=== PATIENT | male | born 1955 | race African-American/Black ===

== ENCOUNTER 2023-03-22 16:34 | Inpatient (IN) | payer MEDICARE ==
[2023-03-22 17:05] VITALS: BMI 30.2
[2023-03-22] MEDS ORDERED: Senokot S 8.6-50 MG TAB PO PRN (17:49)
[2023-03-22] MEDS ORDERED: Ondansetron ODT 4 MG TAB PO PRN (17:49)
[2023-03-22] MEDS ORDERED: HYDROcodone/Acetaminophen 7.5/325 mg Tablet PO PRN (17:49)
[2023-03-22] MEDS ORDERED: HYDROcodone/Acetaminophen 5/325 mg Tablet PO PRN (17:49)
[2023-03-22 19:47] LABS: #Basophils 0.1 10x3/uL (0.0-0.2); #Eosinphils 0.3 10x3/uL (0.0-0.5); #Monocytes 0.9 10x3/uL (0.0-1.1); #Neutrophils 3.8 10x3/uL (1.5-8.4); %Basophils 0.8 % (0.0-2.0); %Eosinophils 3.8 % (0.0-6.0); %Lymphocytes 22.7 % (18.0-47.0); %Monocytes 13.8 % (0.0-10.0); %Neutrophils 58.6 % (40.0-75.0); Hematocrit 23.3 % (38.8-50.0); Hemoglobin 7.4 g/dL (13.5-17.5); Mean Corpuscular HGB CONC 31.8 g/dL (32.0-36.0); Mean Corpuscular Hemoglobin 25.5 pg (27.0-33.0); Mean Corpuscular Volume 80.3 fl (81.2-95.1); Mean Platelet Volume 8.5 fl (7.4-10.4); Platelet Count 502 10x3/uL (150-450); RBC Distribution Width 19.3 % (11.5-14.5); White Blood Cell (WBC) Count 6.5 10x3/uL (3.5-10.5)
[2023-03-22 19:50] LABS: ALT (SGPT) 27 U/L (8-55); AST (SGOT) 14 U/L (5-34); Albumin 3.4 g/dL (3.4-4.8); Alkaline Phosphatase 58 U/L (40-110); Anion Gap 13 mmol/L (10-20); BUN (Urea Nitrogen) 13 mg/dL (8.4-25.7); Bilirubin, Total 0.2 mg/dL (0.2-1.2); Calc. Creatinine Clearance 85 mL/min (70-130); Calcium 8.6 mg/dL (7.8-10.44); Carbon Dioxide 20 mmol/L (23-31); Chloride 108 mmol/L (98-107); Estimated GFR 69; Globulin 2.6 g/dL (2.4-3.5); Glucose 91 mg/dL (80-115); Potassium 4.4 mmol/L (3.5-5.1); Sodium 137 mmol/L (136-145)
[2023-03-22] MEDS: Famotidine 20 MG TAB PO SCH (21:00)
[2023-03-22] MEDS: Carvedilol 6.25 MG TAB PO SCH (21:00)
[2023-03-22] MEDS: Magnesium Oxide 400 MG TAB PO SCH (21:00)
[2023-03-23 06:13] LABS: #Basophils 0.1 10x3/uL (0.0-0.2); #Eosinphils 0.2 10x3/uL (0.0-0.5); #Monocytes 0.9 10x3/uL (0.0-1.1); #Neutrophils 5.1 10x3/uL (1.5-8.4); %Basophils 0.8 % (0.0-2.0); %Eosinophils 2.6 % (0.0-6.0); %Lymphocytes 20.5 % (18.0-47.0); %Monocytes 11.3 % (0.0-10.0); %Neutrophils 64.4 % (40.0-75.0); Hematocrit 22.8 % (38.8-50.0); Hemoglobin 7.1 g/dL (13.5-17.5); Mean Corpuscular HGB CONC 31.1 g/dL (32.0-36.0); Mean Corpuscular Volume 80.3 fl (81.2-95.1); Mean Platelet Volume 8.5 fl (7.4-10.4); Platelet Count 493 10x3/uL (150-450); RBC Distribution Width 19.6 % (11.5-14.5); Red Blood Cell (RBC) Count 2.84 10x6/uL (4.32-5.72)
[2023-03-23 06:34] LABS: ALT (SGPT) 23 U/L (8-55); AST (SGOT) 14 U/L (5-34); Albumin 3.2 g/dL (3.4-4.8); Alkaline Phosphatase 54 U/L (40-110); Anion Gap 12 mmol/L (10-20); BUN (Urea Nitrogen) 14 mg/dL (8.4-25.7); Bilirubin, Total 0.2 mg/dL (0.2-1.2); Calc. Creatinine Clearance 80 mL/min (70-130); Calcium 8.6 mg/dL (7.8-10.44); Carbon Dioxide 23 mmol/L (23-31); Chloride 108 mmol/L (98-107); Estimated GFR 65; Globulin 2.3 g/dL (2.4-3.5); Glucose 96 mg/dL (80-115); Potassium 4.4 mmol/L (3.5-5.1); Protein, Total 5.5 g/dL (5.8-8.1); Sodium 139 mmol/L (136-145)
[2023-03-23] MEDS: Lisinopril 5 MG TAB PO SCH (08:55)
[2023-03-23] MEDS: Famotidine 20 MG TAB PO SCH ×2 (08:55→21:45)
[2023-03-23] MEDS: Carvedilol 6.25 MG TAB PO SCH ×2 (08:55→21:46)
[2023-03-23] MEDS: Magnesium Oxide 400 MG TAB PO SCH ×2 (08:55→21:45)
[2023-03-23] MEDS: CO Q-10 CAPSULE 50 MG PO SCH (08:56)
[2023-03-23] MEDS ORDERED: Clopidogrel Bisulfate 75 MG TAB PO SCH (09:00)
[2023-03-23] MEDS: Mometasone/Formoterol 200/5 60 PUFF INH SCH ×3 (09:10→20:41)
[2023-03-23 10:45] LABS: Prothrombin Time 10.5 sec (9.5-12.1)
[2023-03-23 10:46] LABS: Iron 18 ug/dL (65-175); Iron Binding Capacity, Total 356 mcg/dL (261-462)
[2023-03-23] MEDS ORDERED: Iron Sucrose Complex 200 MG in Sodium Chloride 0.9% 100 ML IVPB SCH (16:00)
[2023-03-23] MEDS ORDERED: Iron, Sodium Ferric Gluconate 250 MG in Sodium Chloride 0.9% 250 ML 250 ML IVPB SCH (16:30)
[2023-03-23] MEDS ORDERED: GoLYTELY 4,000 ml Bottle PO SCH (19:00)
[2023-03-23] MEDS: Ipratropium/Albuterol 3 ML NEB NEB PRN (20:40)
[2023-03-23] MEDS: Atorvastatin Calcium 40 MG TAB PO SCH (21:45)
[2023-03-24] MEDS ORDERED: Acetaminophen 325 MG TAB PO SCH (03:45)
[2023-03-24] MEDS ORDERED: Nitroglycerin 0.4 MG TAB (25 Tab Bottle) SL SCH ×2 (04:15→05:50)
[2023-03-24] MEDS ORDERED: Nitroglycerin 0.4 MG TAB (25 Tab Bottle) ONE (04:15)
[2023-03-24] MEDS ORDERED: Famotidine/PF 20 mg/2ml Vial SLOW IVP SCH (04:30)
[2023-03-24] MEDS ORDERED: Morphine 2 MG/ML VIAL SLOW IVP SCH (05:15)
[2023-03-24 05:53] LABS: #Basophils 0.1 10x3/uL (0.0-0.2); #Eosinphils 0.1 10x3/uL (0.0-0.5); #Monocytes 0.9 10x3/uL (0.0-1.1); #Neutrophils 18.9 10x3/uL (1.5-8.4); %Basophils 0.3 % (0.0-2.0); %Eosinophils 0.5 % (0.0-6.0); %Lymphocytes 3.9 % (18.0-47.0); %Monocytes 4.1 % (0.0-10.0); %Neutrophils 90.2 % (40.0-75.0); Anion Gap 14 mmol/L (10-20); BUN (Urea Nitrogen) 19 mg/dL (8.4-25.7); Calc. Creatinine Clearance 72 mL/min (70-130); Calcium 8.3 mg/dL (7.8-10.44); Carbon Dioxide 23 mmol/L (23-31); Chloride 105 mmol/L (98-107); Estimated GFR 57; Glucose 147 mg/dL (80-115); Hematocrit 20.4 % (38.8-50.0); Hemoglobin 6.5 g/dL (13.5-17.5); Mean Corpuscular HGB CONC 31.9 g/dL (32.0-36.0); Mean Corpuscular Hemoglobin 25.2 pg (27.0-33.0); Mean Corpuscular Volume 79.1 fl (81.2-95.1); Mean Platelet Volume 8.5 fl (7.4-10.4); Platelet Count 435 10x3/uL (150-450); Potassium 3.9 mmol/L (3.5-5.1); RBC Distribution Width 19.2 % (11.5-14.5); Red Blood Cell (RBC) Count 2.58 10x6/uL (4.32-5.72); Sodium 138 mmol/L (136-145)
[2023-03-24] MEDS ORDERED: Sodium Chloride 0.9% 500 ML IVPB SCH (06:00)
[2023-03-24] MEDS ORDERED: Heparin 5,000 UNITS/ML VIAL SLOW IVP SCH (06:00)
[2023-03-24] MEDS ORDERED: Nitroglycerin 50 MG/250 ML BOT 250 ML ONE ×2 (06:15→06:16)
[2023-03-24] MEDS ORDERED: Heparin 10,000 UNITS/ 10 ML VIAL ONE ×2 (06:16→07:47)
[2023-03-24] MEDS ORDERED: Verapamil 5 MG/2 ML VIAL ONE (06:16)
[2023-03-24] MEDS ORDERED: Lidocaine 1% (PF) 30 ML VIAL ONE (06:16)
[2023-03-24] MEDS ORDERED: Adenosine 6 MG/2 ML VIAL ONE (06:17)
[2023-03-24] MEDS ORDERED: Sodium Chloride 0.9% 1,000 ML ONE (06:18)
[2023-03-24] MEDS ORDERED: fentaNYL 50 mcg/mL 1 mL Vial ONE (06:42)
[2023-03-24] MEDS ORDERED: Midazolam HCl 2 mg/2 ml Vial ONE (06:42)
[2023-03-24] MEDS ORDERED: DOPamine/D5W 400 mg/250 ml PREMIX ONE (07:00)
[2023-03-24] MEDS ORDERED: NOREPINEPHRINE 8 MG/250 ML-D5W 0 ML ONE (07:10)
[2023-03-24] MEDS ORDERED: PHENYLEPHRINE-NS 100 MCG/ML 10 ML SYRINGE ONE (07:11)
[2023-03-24] MEDS: Mometasone/Formoterol 200/5 60 PUFF INH SCH ×2 (07:15→20:56)
[2023-03-24] MEDS ORDERED: TICAGRELOR 90 MG TABLET ONE (07:17)
[2023-03-24] MEDS ORDERED: Acetaminophen/Codeine 30-300mg Tablet PO PRN ×2 (07:50)
[2023-03-24] MEDS ORDERED: Nitroglycerin 0.4 MG TAB (25 Tab Bottle) SL PRN (07:50)
[2023-03-24] MEDS ORDERED: Sodium Chloride 0.9% 200 ML IV PRN (07:50)
[2023-03-24] MEDS: Pantoprazole 40 MG VIAL IVP SCH ×2 (08:50→18:38)
[2023-03-24] MEDS: CO Q-10 CAPSULE 50 MG PO SCH (08:50)
[2023-03-24] MEDS: Sodium Chloride 0.9% 1,000 ML IV SCH ×2 (08:50→16:43)
[2023-03-24] MEDS: Carvedilol 6.25 MG TAB PO SCH ×2 (08:51→20:05)
[2023-03-24] MEDS: Famotidine 20 MG TAB PO SCH ×2 (08:51→20:05)
[2023-03-24] MEDS: Magnesium Oxide 400 MG TAB PO SCH ×2 (08:51→20:05)
[2023-03-24] MEDS ORDERED: Furosemide 20 MG/2 ML VIAL SLOW IVP SCH (09:00)
[2023-03-24] MEDS ORDERED: Iron Sucrose Complex 100 MG in Sodium Chloride 0.9% 100 ML IVPB SCH (09:00)
[2023-03-24] MEDS ORDERED: Iopamidol 300 61% 100 ML VIAL FS ONE (09:59)
[2023-03-24] MEDS: Iron, Sodium Ferric Gluconate 125 MG in Sodium Chloride 0.9% 100 ML IVPB SCH (10:44)
[2023-03-24 11:22] LABS: Hematocrit 29.8 % (38.8-50.0); Hemoglobin 9.1 g/dL (13.5-17.5)
[2023-03-24] MEDS: Lisinopril 5 MG TAB PO SCH (11:29)
[2023-03-24 11:59] LABS: Troponin I Greater than 45.000 ng/mL (< 0.028)
[2023-03-24] MEDS: Sodium Chloride 0.65% Nasal 44 ML BOT EA NARE SCH ×3 (16:40→22:39)
[2023-03-24 16:54] LABS: Troponin I 162.878 ng/mL (< 0.028)
[2023-03-24 19:33] LABS: Troponin I 180.844 ng/mL (< 0.028)
[2023-03-24] MEDS: Atorvastatin Calcium 40 MG TAB PO SCH (20:05)
[2023-03-24] MEDS: TICAGRELOR 90 MG TABLET PO SCH (20:06)
[2023-03-24] MEDS: Ipratropium/Albuterol 3 ML NEB NEB PRN (20:10)
[2023-03-25 00:33] LABS: Troponin I 135.732 ng/mL (< 0.028)
[2023-03-25] MEDS: Sodium Chloride 0.9% 1,000 ML IV SCH (01:59)
[2023-03-25] MEDS: Sodium Chloride 0.65% Nasal 44 ML BOT EA NARE SCH ×9 (02:00→22:18)
[2023-03-25 03:58] LABS: #Basophils 0.1 10x3/uL (0.0-0.2); #Eosinphils 0.1 10x3/uL (0.0-0.5); #Monocytes 1.4 10x3/uL (0.0-1.1); #Neutrophils 15.7 10x3/uL (1.5-8.4); %Basophils 0.3 % (0.0-2.0); %Eosinophils 0.4 % (0.0-6.0); %Lymphocytes 7.3 % (18.0-47.0); %Monocytes 7.2 % (0.0-10.0); %Neutrophils 83.9 % (40.0-75.0); Hematocrit 24.1 % (38.8-50.0); Hemoglobin 7.8 g/dL (13.5-17.5); Mean Corpuscular HGB CONC 32.4 g/dL (32.0-36.0); Mean Corpuscular Hemoglobin 25.5 pg (27.0-33.0); Mean Corpuscular Volume 78.8 fl (81.2-95.1); Mean Platelet Volume 9.1 fl (7.4-10.4); Platelet Count 353 10x3/uL (150-450); RBC Distribution Width 19.1 % (11.5-14.5); Red Blood Cell (RBC) Count 3.06 10x6/uL (4.32-5.72); White Blood Cell (WBC) Count 18.7 10x3/uL (3.5-10.5)
[2023-03-25 04:08] LABS: Anion Gap 11 mmol/L (10-20); BUN (Urea Nitrogen) 14 mg/dL (8.4-25.7); Calc. Creatinine Clearance 82 mL/min (70-130); Calcium 8.2 mg/dL (7.8-10.44); Carbon Dioxide 23 mmol/L (23-31); Chloride 107 mmol/L (98-107); Estimated GFR 66; Glucose 112 mg/dL (80-115); Potassium 3.8 mmol/L (3.5-5.1); Sodium 137 mmol/L (136-145)
[2023-03-25] MEDS: Pantoprazole 40 MG VIAL IVP SCH (06:22)
[2023-03-25] MEDS: Mometasone/Formoterol 200/5 60 PUFF INH SCH ×2 (06:49→20:29)
[2023-03-25 08:42] LABS: Troponin I 83.333 ng/mL (< 0.028)
[2023-03-25] MEDS: Famotidine 20 MG TAB PO SCH ×2 (08:53→21:12)
[2023-03-25] MEDS: TICAGRELOR 90 MG TABLET PO SCH ×2 (08:53→21:26)
[2023-03-25] MEDS: CO Q-10 CAPSULE 50 MG PO SCH (08:53)
[2023-03-25] MEDS: Magnesium Oxide 400 MG TAB PO SCH ×2 (08:53→21:11)
[2023-03-25] MEDS: Lisinopril 5 MG TAB PO SCH (08:53)
[2023-03-25] MEDS: Aspirin 81 mg Enteric Coated Tablet PO SCH (08:53)
[2023-03-25] MEDS: Carvedilol 6.25 MG TAB PO SCH ×2 (08:55→21:12)
[2023-03-25] MEDS: Ipratropium/Albuterol 3 ML NEB NEB PRN (11:30)
[2023-03-25] MEDS ORDERED: Ivabradine 5 MG TAB PO SCH (11:45)
[2023-03-25] MEDS: Iron, Sodium Ferric Gluconate 125 MG in Sodium Chloride 0.9% 100 ML IVPB SCH (12:55)
[2023-03-25 16:17] LABS: Hemoglobin 8.6 g/dL (13.5-17.5)
[2023-03-25] MEDS ORDERED: Piperacillin/Tazobactam 3.375 GM in Sodium Chloride 0.9% 100 ML IVPB SCH (18:00)
[2023-03-25 18:43] LABS: Bilirubin Neg (Negative); Blood, Urine Negative (Negative); Clarity Clear (Clear); Glucose, Urine (Dipstick) Normal (Negative); Ketone, Urine Negative (Negative); Leukocyte Negative (Negative); Nitrite Negative (Negative); Protein, Urine (Dipstick) 15 mg/dl (Neg-Trace); Urobilinogen Normal mg/dL (Less than 2)
[2023-03-25 19:11] LABS: Bacteria/HPF Rare-Few HPF (None Seen); CAUTI Indications for Culture Fever or rigors; RBC/HPF None Seen HPF (0-3); Squamous Epithelial 0-3 HPF (0-3); Urine Culture Reflex No No; WBC/HPF 0-3 HPF (0-3)
[2023-03-25] MEDS: Oxymetazoline HCl 0.05% ( 15 ML ) NASAL PRN (20:44)
[2023-03-25] MEDS: Ivabradine 5 MG TAB PO SCH (21:11)
[2023-03-25] MEDS: Atorvastatin Calcium 40 MG TAB PO SCH (21:12)
[2023-03-25] MEDS: Piperacillin/Tazobactam 3.375 GM in Sodium Chloride 0.9% 100 ML IVPB SCH (22:14)
[2023-03-26] MEDS: Sodium Chloride 0.65% Nasal 44 ML BOT EA NARE SCH ×8 (00:55→22:16)
[2023-03-26] MEDS: Oxymetazoline HCl 0.05% ( 15 ML ) NASAL PRN ×2 (04:00→04:14)
[2023-03-26 04:27] LABS: #Basophils 0.1 10x3/uL (0.0-0.2); #Eosinphils 0.1 10x3/uL (0.0-0.5); #Monocytes 1.4 10x3/uL (0.0-1.1); #Neutrophils 11.7 10x3/uL (1.5-8.4); %Basophils 0.5 % (0.0-2.0); %Eosinophils 0.3 % (0.0-6.0); %Lymphocytes 10.3 % (18.0-47.0); %Monocytes 9.4 % (0.0-10.0); %Neutrophils 78.8 % (40.0-75.0); Hematocrit 23.2 % (38.8-50.0); Hemoglobin 7.6 g/dL (13.5-17.5); Mean Corpuscular HGB CONC 32.8 g/dL (32.0-36.0); Mean Corpuscular Hemoglobin 26.4 pg (27.0-33.0); Mean Corpuscular Volume 80.6 fl (81.2-95.1); Mean Platelet Volume 9.1 fl (7.4-10.4); Platelet Count 341 10x3/uL (150-450); RBC Distribution Width 19.4 % (11.5-14.5); Red Blood Cell (RBC) Count 2.88 10x6/uL (4.32-5.72); White Blood Cell (WBC) Count 14.9 10x3/uL (3.5-10.5)
[2023-03-26 04:38] LABS: Anion Gap 14 mmol/L (10-20); BUN (Urea Nitrogen) 18 mg/dL (8.4-25.7); Calc. Creatinine Clearance 68 mL/min (70-130); Calcium 8.1 mg/dL (7.8-10.44); Carbon Dioxide 18 mmol/L (23-31); Chloride 109 mmol/L (98-107); Estimated GFR 53; Glucose 108 mg/dL (80-115); Potassium 3.9 mmol/L (3.5-5.1); Sodium 137 mmol/L (136-145)
[2023-03-26] MEDS: Piperacillin/Tazobactam 3.375 GM in Sodium Chloride 0.9% 100 ML IVPB SCH ×3 (05:39→22:03)
[2023-03-26] MEDS: Famotidine 20 MG TAB PO SCH ×2 (09:59→20:14)
[2023-03-26] MEDS: Carvedilol 6.25 MG TAB PO SCH ×2 (09:59→22:14)
[2023-03-26] MEDS: TICAGRELOR 90 MG TABLET PO SCH ×2 (10:00→20:15)
[2023-03-26] MEDS: Aspirin 81 mg Enteric Coated Tablet PO SCH (10:00)
[2023-03-26] MEDS: Ferrous Sulfate 325 MG TAB PO SCH (10:00)
[2023-03-26] MEDS: Lisinopril 5 MG TAB PO SCH (10:01)
[2023-03-26] MEDS: Ivabradine 5 MG TAB PO SCH ×2 (10:01→20:14)
[2023-03-26] MEDS: CO Q-10 CAPSULE 50 MG PO SCH (10:06)
[2023-03-26] MEDS: Magnesium Oxide 400 MG TAB PO SCH ×2 (10:08→20:15)
[2023-03-26] MEDS: Iron, Sodium Ferric Gluconate 125 MG in Sodium Chloride 0.9% 100 ML IVPB SCH (10:08)
[2023-03-26] MEDS: Mometasone/Formoterol 200/5 60 PUFF INH SCH ×2 (11:13→19:07)
[2023-03-26] MEDS ORDERED: Acetaminophen 325 MG TAB PO PRN (17:49)
[2023-03-26] MEDS: Atorvastatin Calcium 40 MG TAB PO SCH (20:14)
[2023-03-27] MEDS: Sodium Chloride 0.65% Nasal 44 ML BOT EA NARE SCH ×8 (00:52→22:35)
[2023-03-27] MEDS: Oxymetazoline HCl 0.05% ( 15 ML ) NASAL PRN (02:32)
[2023-03-27 05:14] LABS: Anion Gap 13 mmol/L (10-20); BUN (Urea Nitrogen) 17 mg/dL (8.4-25.7); Calc. Creatinine Clearance 70 mL/min (70-130); Calcium 8.5 mg/dL (7.8-10.44); Carbon Dioxide 21 mmol/L (23-31); Chloride 105 mmol/L (98-107); Estimated GFR 55; Glucose 112 mg/dL (80-115); Potassium 4.2 mmol/L (3.5-5.1); Sodium 135 mmol/L (136-145)
[2023-03-27 05:18] LABS: #Basophils 0.1 10x3/uL (0.0-0.2); #Eosinphils 0.1 10x3/uL (0.0-0.5); #Monocytes 1.4 10x3/uL (0.0-1.1); #Neutrophils 10.8 10x3/uL (1.5-8.4); %Basophils 0.5 % (0.0-2.0); %Lymphocytes 8.8 % (18.0-47.0); %Monocytes 10.1 % (0.0-10.0); %Neutrophils 78.4 % (40.0-75.0); Hematocrit 24.9 % (38.8-50.0); Mean Corpuscular HGB CONC 32.1 g/dL (32.0-36.0); Mean Corpuscular Hemoglobin 26.5 pg (27.0-33.0); Mean Corpuscular Volume 82.5 fl (81.2-95.1); Mean Platelet Volume 9.1 fl (7.4-10.4); Platelet Count 335 10x3/uL (150-450); RBC Distribution Width 20.3 % (11.5-14.5); Red Blood Cell (RBC) Count 3.02 10x6/uL (4.32-5.72); White Blood Cell (WBC) Count 13.8 10x3/uL (3.5-10.5)
[2023-03-27] MEDS: Piperacillin/Tazobactam 3.375 GM in Sodium Chloride 0.9% 100 ML IVPB SCH ×3 (05:44→21:11)
[2023-03-27] MEDS: Aspirin 81 mg Enteric Coated Tablet PO SCH (09:32)
[2023-03-27] MEDS: Ferrous Sulfate 325 MG TAB PO SCH (09:32)
[2023-03-27] MEDS: Carvedilol 6.25 MG TAB PO SCH ×2 (09:34→21:10)
[2023-03-27] MEDS: Ivabradine 5 MG TAB PO SCH ×2 (09:34→21:11)
[2023-03-27] MEDS: Famotidine 20 MG TAB PO SCH ×2 (09:34→21:10)
[2023-03-27] MEDS: TICAGRELOR 90 MG TABLET PO SCH ×2 (09:35→21:10)
[2023-03-27] MEDS: CO Q-10 CAPSULE 50 MG PO SCH (09:35)
[2023-03-27] MEDS: Magnesium Oxide 400 MG TAB PO SCH ×2 (09:35→21:10)
[2023-03-27] MEDS: Lisinopril 5 MG TAB PO SCH (09:35)
[2023-03-27] MEDS: Mometasone/Formoterol 200/5 60 PUFF INH SCH ×2 (13:50→19:11)
[2023-03-27] MEDS: Atorvastatin Calcium 40 MG TAB PO SCH (21:10)
[2023-03-28] MEDS: Sodium Chloride 0.65% Nasal 44 ML BOT EA NARE SCH ×8 (02:30→22:04)
[2023-03-28 04:15] LABS: Anion Gap 13 mmol/L (10-20); BUN (Urea Nitrogen) 16 mg/dL (8.4-25.7); Calc. Creatinine Clearance 67 mL/min (70-130); Calcium 8.6 mg/dL (7.8-10.44); Carbon Dioxide 20 mmol/L (23-31); Chloride 107 mmol/L (98-107); Estimated GFR 52; Glucose 106 mg/dL (80-115); Potassium 4.4 mmol/L (3.5-5.1); Sodium 136 mmol/L (136-145)
[2023-03-28 04:20] LABS: #Basophils 0.1 10x3/uL (0.0-0.2); #Eosinphils 0.2 10x3/uL (0.0-0.5); #Monocytes 1.3 10x3/uL (0.0-1.1); #Neutrophils 8.1 10x3/uL (1.5-8.4); %Basophils 0.5 % (0.0-2.0); %Eosinophils 1.6 % (0.0-6.0); %Lymphocytes 11.3 % (18.0-47.0); %Monocytes 11.9 % (0.0-10.0); %Neutrophils 73.2 % (40.0-75.0); Hematocrit 23.6 % (38.8-50.0); Hemoglobin 7.5 g/dL (13.5-17.5); Mean Corpuscular HGB CONC 31.8 g/dL (32.0-36.0); Mean Corpuscular Hemoglobin 26.1 pg (27.0-33.0); Mean Corpuscular Volume 82.2 fl (81.2-95.1); Mean Platelet Volume 9.1 fl (7.4-10.4); Platelet Count 315 10x3/uL (150-450); RBC Distribution Width 20.5 % (11.5-14.5); Red Blood Cell (RBC) Count 2.87 10x6/uL (4.32-5.72); White Blood Cell (WBC) Count 11.1 10x3/uL (3.5-10.5)
[2023-03-28] MEDS: Piperacillin/Tazobactam 3.375 GM in Sodium Chloride 0.9% 100 ML IVPB SCH (05:44)
[2023-03-28] MEDS: Ferrous Sulfate 325 MG TAB PO SCH (10:42)
[2023-03-28] MEDS: Famotidine 20 MG TAB PO SCH ×2 (10:42→20:58)
[2023-03-28] MEDS: Carvedilol 6.25 MG TAB PO SCH ×2 (10:42→20:58)
[2023-03-28] MEDS: Magnesium Oxide 400 MG TAB PO SCH ×2 (10:43→20:57)
[2023-03-28] MEDS: CO Q-10 CAPSULE 50 MG PO SCH (10:43)
[2023-03-28] MEDS: TICAGRELOR 90 MG TABLET PO SCH ×2 (10:43→20:58)
[2023-03-28] MEDS: Lisinopril 5 MG TAB PO SCH (10:43)
[2023-03-28] MEDS: Ivabradine 5 MG TAB PO SCH ×2 (10:43→20:57)
[2023-03-28] MEDS: Aspirin 81 mg Enteric Coated Tablet PO SCH (11:09)
[2023-03-28] MEDS: Mometasone/Formoterol 200/5 60 PUFF INH SCH ×2 (11:33→20:23)
[2023-03-28] MEDS: Atorvastatin Calcium 40 MG TAB PO SCH (20:58)
[2023-03-28] MEDS: Ipratropium/Albuterol 3 ML NEB NEB PRN (21:25)
[2023-03-29] MEDS: Sodium Chloride 0.65% Nasal 44 ML BOT EA NARE SCH ×8 (01:05→23:05)
[2023-03-29 04:13] LABS: Anion Gap 13 mmol/L (10-20); BUN (Urea Nitrogen) 15 mg/dL (8.4-25.7); Calc. Creatinine Clearance 76 mL/min (70-130); Calcium 8.4 mg/dL (7.8-10.44); Carbon Dioxide 21 mmol/L (23-31); Chloride 107 mmol/L (98-107); Estimated GFR 60; Glucose 110 mg/dL (80-115); Potassium 4.1 mmol/L (3.5-5.1); Sodium 137 mmol/L (136-145)
[2023-03-29 04:26] LABS: #Basophils 0.1 10x3/uL (0.0-0.2); #Eosinphils 0.3 10x3/uL (0.0-0.5); #Monocytes 1.1 10x3/uL (0.0-1.1); #Neutrophils 6.1 10x3/uL (1.5-8.4); %Basophils 0.5 % (0.0-2.0); %Eosinophils 3.3 % (0.0-6.0); %Lymphocytes 16.8 % (18.0-47.0); %Monocytes 12.2 % (0.0-10.0); %Neutrophils 65.1 % (40.0-75.0); Hematocrit 21.7 % (38.8-50.0); Hemoglobin 6.8 g/dL (13.5-17.5); Mean Corpuscular HGB CONC 31.3 g/dL (32.0-36.0); Mean Corpuscular Hemoglobin 26.3 pg (27.0-33.0); Mean Corpuscular Volume 83.8 fl (81.2-95.1); Mean Platelet Volume 9.2 fl (7.4-10.4); Platelet Count 299 10x3/uL (150-450); RBC Distribution Width 20.9 % (11.5-14.5); Red Blood Cell (RBC) Count 2.59 10x6/uL (4.32-5.72); White Blood Cell (WBC) Count 9.4 10x3/uL (3.5-10.5)
[2023-03-29] MEDS: Ipratropium/Albuterol 3 ML NEB NEB PRN ×2 (05:55→20:48)
[2023-03-29] MEDS ORDERED: Furosemide 20 MG/2 ML VIAL SLOW IVP PRN (08:59)
[2023-03-29] MEDS: Lisinopril 5 MG TAB PO SCH (10:05)
[2023-03-29] MEDS: Carvedilol 6.25 MG TAB PO SCH ×2 (10:05→21:06)
[2023-03-29] MEDS: Famotidine 20 MG TAB PO SCH ×2 (10:07→21:08)
[2023-03-29] MEDS: Ferrous Sulfate 325 MG TAB PO SCH (10:07)
[2023-03-29] MEDS: Magnesium Oxide 400 MG TAB PO SCH ×2 (10:08→21:05)
[2023-03-29] MEDS: Ivabradine 5 MG TAB PO SCH ×2 (10:08→21:05)
[2023-03-29] MEDS: TICAGRELOR 90 MG TABLET PO SCH ×2 (10:08→21:08)
[2023-03-29] MEDS: CO Q-10 CAPSULE 50 MG PO SCH (10:08)
[2023-03-29] MEDS: Mometasone/Formoterol 200/5 60 PUFF INH SCH ×2 (10:16→19:33)
[2023-03-29] MEDS: Atorvastatin Calcium 40 MG TAB PO SCH (21:05)
[2023-03-30] MEDS: Oxymetazoline HCl 0.05% ( 15 ML ) NASAL PRN (00:09)
[2023-03-30] MEDS: Ipratropium/Albuterol 3 ML NEB NEB PRN (01:03)
[2023-03-30] MEDS: Sodium Chloride 0.65% Nasal 44 ML BOT EA NARE SCH ×3 (01:54→06:48)
[2023-03-30 04:09] LABS: #Basophils 0.1 10x3/uL (0.0-0.2); #Eosinphils 0.3 10x3/uL (0.0-0.5); #Monocytes 0.9 10x3/uL (0.0-1.1); #Neutrophils 6.1 10x3/uL (1.5-8.4); %Basophils 0.9 % (0.0-2.0); %Eosinophils 3.7 % (0.0-6.0); %Lymphocytes 16.5 % (18.0-47.0); %Monocytes 10.2 % (0.0-10.0); Hematocrit 29.7 % (38.8-50.0); Hemoglobin 9.4 g/dL (13.5-17.5); Mean Corpuscular HGB CONC 31.6 g/dL (32.0-36.0); Mean Corpuscular Hemoglobin 26.7 pg (27.0-33.0); Mean Corpuscular Volume 84.4 fl (81.2-95.1); Mean Platelet Volume 9.7 fl (7.4-10.4); Platelet Count 309 10x3/uL (150-450); Red Blood Cell (RBC) Count 3.52 10x6/uL (4.32-5.72); White Blood Cell (WBC) Count 9.2 10x3/uL (3.5-10.5)
[2023-03-30 04:19] LABS: Anion Gap 13 mmol/L (10-20); BUN (Urea Nitrogen) 14 mg/dL (8.4-25.7); Calc. Creatinine Clearance 75 mL/min (70-130); Calcium 8.8 mg/dL (7.8-10.44); Carbon Dioxide 22 mmol/L (23-31); Chloride 105 mmol/L (98-107); Estimated GFR 59; Glucose 106 mg/dL (80-115); Potassium 4.3 mmol/L (3.5-5.1); Sodium 136 mmol/L (136-145)
[2023-03-30] MEDS: Mometasone/Formoterol 200/5 60 PUFF INH SCH (07:42)
[2023-03-30] MEDS: Carvedilol 6.25 MG TAB PO SCH (08:27)
[2023-03-30] MEDS: Lisinopril 5 MG TAB PO SCH (08:27)
[2023-03-30] MEDS: Magnesium Oxide 400 MG TAB PO SCH (08:27)
[2023-03-30] MEDS: CO Q-10 CAPSULE 50 MG PO SCH (08:27)
[2023-03-30] MEDS: Famotidine 20 MG TAB PO SCH (08:27)
[2023-03-30] MEDS: Ivabradine 5 MG TAB PO SCH (08:27)
[2023-03-30] MEDS: TICAGRELOR 90 MG TABLET PO SCH (08:28)
[2023-03-30] MEDS: Ferrous Sulfate 325 MG TAB PO SCH (08:28)
[2023-03-30 09:13] VITALS: BP 115/72; TEMP 98.3
== END 2023-03-30 10:31 | disposition home or self-care (01) | DRG 246 ==
LOC: INTOOBSV 16:34 → CSHTELE 16:34 → OBSVTOIN 03-23 18:03 → CSHIMCU 03-24 07:59 → CSHTELE 03-25 17:26
PROVIDERS: ADMIT Family Medicine; ATTEND Hospitalist
PROC: 02C03ZZ Extirpation of Matter from Coronary Artery, One Artery, Percutaneous Approach (ICD-10-PCS; principal; 2023-03-24)
PROC: 027034Z Dilation of Coronary Artery, One Artery with Drug-eluting Intraluminal Device, Percutaneous Approach (ICD-10-PCS; 2023-03-24)
PROC: 093K8ZZ Control Bleeding in Nasal Mucosa and Soft Tissue, Via Natural or Artificial Opening Endoscopic (ICD-10-PCS; 2023-03-24)
PROC: 30233N1 Transfusion of Nonautologous Red Blood Cells into Peripheral Vein, Percutaneous Approach (ICD-10-PCS; 2023-03-24)
PROC: B2111ZZ Fluoroscopy of Multiple Coronary Arteries using Low Osmolar Contrast (ICD-10-PCS; 2023-03-24)
PROC: 3E033XZ Introduction of Vasopressor into Peripheral Vein, Percutaneous Approach (ICD-10-PCS; 2023-03-24)
DX: T82.855A Stenosis of coronary artery stent, initial encounter (principal); A41.9 Sepsis, unspecified organism; I21.3 ST elevation (STEMI) myocardial infarction of unspecified site; I21.A9 Other myocardial infarction type; N17.9 Acute kidney failure, unspecified; D62 Acute posthemorrhagic anemia; R04.0 Epistaxis; I10 Essential (primary) hypertension; I25.10 Atherosclerotic heart disease of native coronary artery without angina pectoris; Z79.82 Long term (current) use of aspirin; Z79.899 Other long term (current) drug therapy; E78.5 Hyperlipidemia, unspecified; J45.909 Unspecified asthma, uncomplicated; I25.5 Ischemic cardiomyopathy; J20.9 Acute bronchitis, unspecified; D50.9 Iron deficiency anemia, unspecified; Y84.8 Other medical procedures as the cause of abnormal reaction of the patient, or of later complication, without mention of misadventure at the time of the procedure; T45.525A Adverse effect of antithrombotic drugs, initial encounter
CPT/HCPCS: 36415; 36416; 36430; 71045; 80048; 80053; 81001; 82728; 83540; 83550; 83605; 84484; 85025; 85046; 85347; 85610; 86850; 86900; 86901; 87040; 92941; 92978; 93005; 93010; 93306; 93454; 94640; 94664; 94760; 94762; 96374; C1725; C1753; C1769; C1874; C1887; C1894; C9113; C9606; G0378; J0153; J1265; J1644; J1940; J2001; J2250; J2272; J2543; J2916; J3010; J3490; J7030; J7050; J7620; P9016; Q9967; S0028

== ENCOUNTER 2023-07-11 16:11 | Emergency (ER) | payer MEDICARE ==
[2023-07-11 16:53] LABS: #Eosinphils 0.4 10x3/uL (0.0-0.5); #Monocytes 1.4 10x3/uL (0.0-1.1); #Neutrophils 6.4 10x3/uL (1.5-8.4); %Basophils 0.4 % (0.0-2.0); %Eosinophils 3.4 % (0.0-6.0); %Lymphocytes 17.2 % (18.0-47.0); %Neutrophils 63.1 % (40.0-75.0); Hematocrit 23.1 % (38.8-50.0); Hemoglobin 7.3 g/dL (13.5-17.5); Mean Corpuscular HGB CONC 31.6 g/dL (32.0-36.0); Mean Corpuscular Hemoglobin 26.9 pg (27.0-33.0); Mean Corpuscular Volume 85.2 fl (81.2-95.1); Mean Platelet Volume 9.2 fl (7.4-10.4); Platelet Count 453 10x3/uL (150-450); RBC Distribution Width 19.6 % (11.5-14.5); Red Blood Cell (RBC) Count 2.71 10x6/uL (4.32-5.72); White Blood Cell (WBC) Count 10.2 10x3/uL (3.5-10.5)
[2023-07-11 17:14] LABS: ALT (SGPT) 58 U/L (8-55); AST (SGOT) 19 U/L (5-34); Albumin 3.3 g/dL (3.4-4.8); Alkaline Phosphatase 58 U/L (40-110); Anion Gap 13 mmol/L (10-20); BUN (Urea Nitrogen) 12 mg/dL (8.4-25.7); Bilirubin, Total 0.2 mg/dL (0.2-1.2); Calc. Creatinine Clearance 0 mL/min (70-130); Calcium 8.7 mg/dL (7.8-10.44); Carbon Dioxide 23 mmol/L (23-31); Chloride 106 mmol/L (98-107); Estimated GFR 71; Globulin 1.9 g/dL (2.4-3.5); Glucose 131 mg/dL (80-115); Potassium 4.6 mmol/L (3.5-5.1); Protein, Total 5.2 g/dL (5.8-8.1); Sodium 137 mmol/L (136-145)
[2023-07-11 19:36] LABS: Bilirubin Neg (Negative); Blood, Urine Negative (Negative); Clarity Clear (Clear); Glucose, Urine (Dipstick) Normal (Negative); Ketone, Urine Negative (Negative); Leukocyte Negative (Negative); Nitrite Negative (Negative); Protein, Urine (Dipstick) Negative (Neg-Trace); Urobilinogen Normal mg/dL (Less than 2); pH, Urine 6.5 (5.0-9.0)
[2023-07-11 19:51] LABS: Bacteria/HPF None Seen HPF (None Seen); CAUTI Indications for Culture Fever or rigors; RBC/HPF None Seen HPF (0-3); Squamous Epithelial None Seen HPF (0-3); WBC/HPF None Seen HPF (0-3)
[2023-07-11 19:53] LABS: Urine Culture Reflex No No
== END 2023-07-11 23:36 | disposition home or self-care (01) ==
LOC: CSHERS 16:11
DX: R53.1 Weakness (principal); I10 Essential (primary) hypertension
CPT/HCPCS: 36430; 71045; 80053; 81001; 83880; 84484; 85025; 86850; 86900; 86901; 86920; 93005; P9016

== ENCOUNTER 2023-10-09 12:30 | Outpatient (CLI) | payer MEDICARE | END 2023-10-09 12:31 | disposition home or self-care (01) | LOC: CSHRAD 12:30 | PROVIDERS: ATTEND Specialist | DX: R06.02 Shortness of breath (principal) | CPT/HCPCS: 71046 ==